=== PATIENT | male | born 1970 | race Caucasian/White ===

== ENCOUNTER → 2023-05-25 | Day surgery (SDC) | payer OTHER ==
[~2023-05-25] MED LIST: DEXAMETHASONE SOD PHOS 10 MG/1 ML VIAL ONE; DEXAMETHASONE SOD PHOS INJ 4 MG/ML SDV ONE; EPINEPHRINE HCL 1:1000 1ML 1 MG/ML AMP ONE; FENTANYL CITRATE/PF 100MCG/2 ML INJ ONE; FLONASE ALLERG9.9 ML INH; LIDOCAINE HCL 2% LOCAL INJ 5 ML SDV VIAL INJ ONE; MIDAZOLAM HCL 2 MG/2 ML VIAL ONE; ONDANSETRON HCL INJ 2MG/ML 2ML 2 MG/ML VIAL ONE; PROPOFOL IV EMULSION 10 MG/ML 20 ML VIAL ONE; ROPIVACAINE 0.5% 5 MG/ML 30 ML SDV ONE; SEVOFLURANE INHAL SOLN 250 ML PEN BTL ONE
[2023-05-25] MEDS: LACTATED RINGER'S 1,000 ML ONE (10:33)
[2023-05-25 14:41] VITALS: BP 124/84; PULSE 78; RESP 18; O2SAT 99
== END | disposition home or self-care (01) ==
LOC: OR 09:39
PROVIDERS: ATTEND Podiatrist Foot & Ankle Surgery
DX: M77.52 Other enthesopathy of left foot and ankle (principal); M21.962 Unspecified acquired deformity of left lower leg; S93.432A Sprain of tibiofibular ligament of left ankle, initial encounter; G47.33 Obstructive sleep apnea (adult) (pediatric); K21.9 Gastro-esophageal reflux disease without esophagitis; X58.XXXA Exposure to other specified factors, initial encounter
CPT/HCPCS: 27695; 29897; J0171; J0690; J1100 ×2; J2001; J2250; J2405; J2704; J2795; J3010; J7121; 76000